=== PATIENT | male | born 1970 | race Caucasian/White ===

== ENCOUNTER 2021-01-21 21:39 | Emergency (ER) | payer SELFPAY ==
[~2021-01-21 21:39] MED LIST: BACTRIM DS TAB1 EACH PO; KEFLEX CAP 500500 MG PO
== END 2021-01-21 23:30 | disposition left against medical advice (07) ==
LOC: ER1 21:39
DX: Z53.21 Procedure and treatment not carried out due to patient leaving prior to being seen by health care provider (principal)

== ENCOUNTER 2021-12-30 06:18 | Emergency (ER) | payer OTHER ==
[2021-12-30] MEDS ORDERED: BENZONATATE200 MG PO (08:03)
[2021-12-30] MEDS ORDERED: ERYTHROMYCIN OP1 GM OP (08:03)
== END 2021-12-30 08:10 | disposition home or self-care (01) ==
LOC: ER1 06:18
DX: S05.01XA Injury of conjunctiva and corneal abrasion without foreign body, right eye, initial encounter (principal); R05.9 Cough, unspecified; I10 Essential (primary) hypertension; F17.200 Nicotine dependence, unspecified, uncomplicated; X58.XXXA Exposure to other specified factors, initial encounter
CPT/HCPCS: 99283